=== PATIENT | male | born 1995 | race Caucasian/White ===

== ENCOUNTER 2018-10-13 23:32 | Emergency (ER) | payer OTHER ==
[2018-10-14] MEDS ORDERED: Sodium Chloride 0.9% 1,000 ML IV STA (00:32)
[2018-10-14 01:16] VITALS: RESP 18
[2018-10-14 01:29] LABS: BASO % 0.2 % (0.0-2.0); EOS # 0.1 K/uL (0.0-0.7); EOS % 1.6 % (0.0-4.0); HEMOGLOBIN 16.5 g/dL (12.0-18.0); LYMPH # 0.7 K/uL (1.0-4.3); LYMPH % 8.1 % (20.0-40.0); MEAN CELL VOLUME 90.9 fl (80.0-94.0); MEAN CORPUSCULAR HEMOGLOBIN 31.5 pg (27.0-31.0); MEAN CORPUSCULAR HGB CONC 34.7 g/dL (33.0-37.0); MEAN PLATELET VOLUME 7.6 fl (7.2-11.7); MONO # 0.6 K/uL (0.0-0.8); MONO % 6.7 % (0.0-10.0); NEUT # 7.3 K/uL (1.8-7.0); NEUT % 83.4 % (50.0-75.0); NRBC % 0.1 % (0.0-0.0); PLATELET COUNT 253 K/uL (130-400); RBC 5.24 Mil/uL (4.40-5.90); RED CELL DISTRIBUTION WIDTH 12.3 % (11.5-14.5); WHITE BLOOD COUNT 8.7 K/uL (4.8-10.8)
[2018-10-14 01:38] LABS: ALB/GLOB RATIO 1.4 (1.0-2.1); ALBUMIN 4.3 g/dL (3.5-5.0); ALT/SGPT 23 U/L (21-72); AST/SGOT 26 U/L (17-59); BLOOD UREA NITROGEN 10 mg/dl (9-20); CALCIUM 9.2 mg/dL (8.4-10.2); GFR NON-AFRICAN AMERICAN > 60; LIPASE 94 U/L (23-300)
[2018-10-14 02:18] LABS: URINE BILIRUBIN NEGATIVE (NEGATIVE); URINE BLOOD NEGATIVE (NEGATIVE); URINE CLARITY CLEAR (Clear); URINE COLOR YELLOW (YELLOW); URINE GLUCOSE (UA) NEG (NEGATIVE); URINE HYALINE CAST 0-2 /hpf (0-2); URINE LEUKOCYTE ESTERASE NEG Leu/uL (Negative); URINE PROTEIN NEGATIVE (NEGATIVE)
--- NOTE | 2018-10-14 02:41 | ED PDOC ---
HPI: Abdomen Time Seen by Provider: 10/14/18 00:32 Chief Complaint (Nursing): Back Pain Chief Complaint (Provider): BACK PAIN/NAUSEA History Per: Patient (23 Y/O MALE WITH BACK PAIN/NAUSEA ASSOCIATED WITH URINARY FREQUENCY. NO FEVERS/CHILLS/COUGH. FEELS PAIN STARTED SUDDENLY TODAY.) Past Medical History Reviewed: Historical Data, Nursing Documentation, Vital Signs Vital Signs: Last Vital Signs Temp Pulse 84 10/14/18 01:15 Resp 18 10/14/18 01:15 BP 103/73 10/14/18 01:15 Pulse Ox 97 10/14/18 01:15 - Family History Family History: States: No Known Family Hx - Home Medications Home Medications: Ambulatory Orders Medication Instructions Recorded Docusate Sodium [Colace] 100 mg PO BID #10 capsule 10/14/18 Naproxen 375 mg PO Q8 PRN #21 tablet 10/14/18 - Allergies Allergies/Adverse Reactions: Allergies Allergy/AdvReac Type Severity Reaction Status Date / Time No Known Allergies Allergy Verified 10/13/18 23:59 Review of Systems ROS Statement: Except As Marked, All Systems Reviewed And Found Negative Physical Exam - Reviewed Nursing Documentation Reviewed: Yes Vital Signs Reviewed: Yes - Physical Exam Appears: Positive for: Well, Non-toxic, No Acute Distress Head Exam: Positive for: ATRAUMATIC, NORMAL INSPECTION, NORMOCEPHALIC Skin: Positive for: Normal Color, Warm, DRY Eye Exam: Positive for: EOMI, Normal appearance, PERRL ENT: Positive for: Normal ENT Inspection Neck: Positive for: Normal, Painless ROM Cardiovascular/Chest: Positive for: Regular Rate, Rhythm Respiratory: Positive for: CNT, Normal Breath Sounds Gastrointestinal/Abdominal: Positive for: Normal Exam, Soft Back: Positive for: Normal Inspection Extremity: Positive for: Normal ROM Neurological/Psych: Positive for: Awake, Alert, Normal Tone - Laboratory Results Result Diagrams: 10/14/18 01:26 10/14/18 01:26 Lab Results: Total Bilirubin 2.4 mg/dl (0.2-1.3) H 10/14/18 01:26 AST 26 U/L (17-59) 10/14/18 01:26 ALT 23 U/L (21-72) 10/14/18 01:26 Alkaline Phosphatase 83 U/L (38-126) 10/14/18 01:26 Total Protein 7.3 G/DL (6.3-8.2) 10/14/18 01:26 Albumin 4.3 g/dL (3.5-5.0) 10/14/18 01:26 Globulin 3.0 gm/dL (2.2-3.9) 10/14/18 01:26 Albumin/Globulin Ratio 1.4 (1.0-2.1) 10/14/18 01:26 Lipase 94 U/L (23-300) 10/14/18 01:26 Urine Color Yellow (YELLOW) 10/14/18 00:54 Urine Clarity Clear (Clear) 10/14/18 00:54 Urine pH 7.0 (5.0-8.0) 10/14/18 00:54 Ur Specific [place] 1.015 (1.003-1.030) 10/14/18 00:54 Urine Protein Negative mg/dL (NEGATIVE) 10/14/18 00:54 Urine Glucose (UA) Neg mg/dL (NEGATIVE) 10/14/18 00:54 Urine Ketones Negative mg/dL (NEGATIVE) 10/14/18 00:54 Urine Blood Negative (NEGATIVE) 10/14/18 00:54 Urine Nitrate Negative (NEGATIVE) 10/14/18 00:54 Urine Bilirubin Negative (NEGATIVE) 10/14/18 00:54 Urine Urobilinogen 2.0 mg/dL (0.2-1.0) 10/14/18 00:54 Ur Leukocyte Esterase Neg Danielle/uL (Negative) 10/14/18 00:54 Urine RBC (Auto) 1 /hpf (0-3) 10/14/18 00:54 Urine Microscopic WBC 1 /hpf (0-5) 10/14/18 00:54 Hyaline Casts 0-2 /hpf (0-2) 10/14/18 00:54 - ECG O2 Sat by Pulse Oximetry: 97 - Progress ED Course And Treament: CT: THICKEND BLADDER UNDERDISTENTION VERSUS MILD CYSTITSI. PLEASE CORRELATE WITH URINALYSIS. CONSTIPATION. ILEUS Disposition - Clinical Impression Clinical Impression: Constipation, Diverticulosis - Patient ED Disposition Is Patient to be Admitted: No - Disposition Referrals: [facility] [Outside] Disposition: Routine/Home Disposition Time: 02:40 Condition: FAIR Prescriptions: Docusate Sodium [Colace] 100 mg PO BID #10 capsule Naproxen 375 mg PO Q8 PRN #21 tablet PRN Reason: Pain, Moderate (4-7) Instructions: Constipation in Adults, Diverticulosis
[2018-10-14 03:08] VITALS: BP 96/60; PULSE 67; TEMP 99.3
[2018-10-14 03:26] LABS: ANISOCYTOSIS SLIGHT; EOSINOPHIL 2 % (0-7); LYMPHOCYTE 6 % (20-50); NEUTROPHIL 89 % (42-75); PLATELET ESTIMATE NORMAL (NORMAL); REACTIVE LYMPHOCYTES 3 % (0-0); TOTAL CELLS COUNTED 100
[2018-10-14 03:27] LABS: SPHEROCYTES SLIGHT
[2018-10-14 04:04] LABS: MONOCYTE 0 % (0-10)
--- NOTE | 2018-10-14 14:03 | CT ---
Date of service: 10/14/2018 PROCEDURE: CT Abdomen and Pelvis without intravenous contrast HISTORY: R/O KIDNEY STONE COMPARISON: None. TECHNIQUE: CT scan of the abdomen and pelvis was performed without the use of intravenous contrast. Multiple helical axial images were obtained with coronal and sagittal reconstruction.. Contrast dose: No contrast Radiation dose: Total exam DLP = 234.7 mGy-cm. This CT exam was performed using one or more of the following dose reduction techniques: Automated exposure control, adjustment of the mA and/or kV according to patient size, and/or use of iterative reconstruction technique. FINDINGS: LOWER THORAX: Unremarkable. LIVER: Unremarkable. No gross lesion or ductal dilatation. GALLBLADDER AND BILE DUCTS: Unremarkable. PANCREAS: Unremarkable. No gross lesion or ductal dilatation. SPLEEN: Unremarkable. ADRENALS: Unremarkable. No mass. KIDNEYS AND URETERS: Unremarkable. No hydronephrosis. No solid mass. No renal calculus or ureteral calculus seen. No bladder calculus noted. VASCULATURE: Unremarkable. No aortic aneurysm. No aortic atherosclerotic calcification or mural plaque present. BOWEL: Moderate residual fecal material seen throughout the colon suggesting constipation. No bowel obstruction, small bowel fold thickening, or colonic wall thickening seen. No pericolonic inflammatory change. Stomach is decompressed limiting evaluation. Duodenum is unremarkable. APPENDIX: Unremarkable. Normal appendix. PERITONEUM: Unremarkable. No free fluid. No free air. LYMPH NODES: Unremarkable. No enlarged lymph nodes. BLADDER: Bladder is decompressed limiting evaluation. Prostate gland is normal in size. REPRODUCTIVE: Unremarkable. BONES: No acute fracture. OTHER FINDINGS: None. IMPRESSION: No appreciable CT scan evidence of obstructive uropathy. Decompressed bladder limiting evaluation. Probable constipation without colonic or small bowel wall thickening to suggest enteritis or colitis.
[2018-10-16 04:49] VITALS: O2SAT 97
== END 2018-10-14 03:07 | disposition home or self-care (01) ==
LOC: H.ER 23:32
DX: K59.00 Constipation, unspecified (principal); K57.00 Diverticulitis of small intestine with perforation and abscess without bleeding
CPT/HCPCS: 74176; 80053; 81003; 83690; 85025; 87086; 96361; 96374; 96375; 99284; J1885; J2405; J7030